=== PATIENT | female | born 1990 | race Caucasian/White ===

== ENCOUNTER 2020-11-30 05:35 | Emergency (ER) | payer SELFPAY ==
[~2020-11-30] VITALS: Ht 162.6 cm; Wt 69.8 kg
[~2020-11-30 05:35] MED LIST: HYDR-3165 PO; IBUP800T19 PO; ONDA4TAB10 SL
[2020-11-30] MEDS ORDERED: CLIN300C9 PO (06:15)
[2020-11-30] MEDS ORDERED: HYDR-2759 PO (06:15)
--- NOTE | 2020-11-30 06:15 | PHYS DOC ---
Past History Past Medical History: Asthma, Ovarian Cyst Past Surgical History: Appendectomy, Other Additional Past Surgical Histo: ovarian cyst removal Smoking: Non-smoker Alcohol Use: None Drug Use: None General Adult EDM: Chief Complaint: DENTAL PROBLEM HPI: HPI: 30-year-old female presents with left lower dental pain. The patient states that she has had bad teeth for some time. She started having swelling about 4 days ago. She has been getting spontaneous drainage of purulent fluid twice a day yesterday and today. She rates her pain a 10 out of 10. She is in the process of getting new insurance and plans to go to a dentist as soon as possible. She needs several extractions and reconstruction. Patient denies fever or chills. She has no other complaints at this time. Review of Systems: Review of Systems: Constitutional: Denies fever or chills Eyes: Denies change in visual acuity HENT: Dental pain Respiratory: Denies cough or shortness of breath Cardiovascular: Denies chest pain or edema GI: Denies abdominal pain, nausea, vomiting, bloody stools or diarrhea : Denies dysuria Musculoskeletal: Denies back pain or joint pain Integument: Denies rash Neurologic: Denies headache, focal weakness or sensory changes Endocrine: Denies polyuria or polydipsia Lymphatic: Denies swollen glands Psychiatric: Denies depression or anxiety Allergies: Allergies: Allergies Coded Allergies Type Severity Reaction Last Updated Verified venom-honey bee Allergy Intermediate 06/11/13 Yes Physical Exam: PE: Constitutional: Well developed, well nourished, no acute distress, non-toxic appearance. [] HENT: Normocephalic, atraumatic, bilateral external ears normal, oropharynx moist, no oral exudates, nose normal. Several dental caries and decomposing teeth. Inflammation of the left lower gums with spontaneous drainage from abscess. [] Eyes: PERRLA, EOMI, conjunctiva normal, no discharge. [] Neck: Normal range of motion, no tenderness, supple, no stridor. [] Cardiovascular:Heart rate regular rhythm, no murmur [] Lungs & Thorax: Bilateral breath sounds clear to auscultation [] Abdomen: Bowel sounds normal, soft, no tenderness, no masses, no pulsatile masses. [] Skin: Warm, dry, no erythema, no rash. [] Back: No tenderness, no CVA tenderness. [] Extremities: No tenderness, no cyanosis, no clubbing, ROM intact, no edema. [] Neurologic: Alert and oriented X 3, normal motor function, normal sensory function, no focal deficits noted. [] Psychologic: Affect normal, judgement normal, mood normal. [] Current Patient Data: Vital Signs: Vital Signs Date Time Temp Pulse Resp B/P (MAP) Pulse Ox O2 Delivery O2 Flow Rate FiO2 11/30/20 05:44 98.0 68 16 103/77 (86) 100 Room Air EKG: EKG: [] Radiology/Procedures: Radiology/Procedures: [] Heart Score: C/O Chest Pain: N/A Risk Factors: Risk Factors: DM, Current or recent (<one month) smoker, HTN, HLP, family histo ry of CAD, obesity. Risk Scores: Score 0 - 3: 2.5% MACE over next 6 weeks - Discharge Home Score 4 - 6: 20.3% MACE over next 6 weeks - Admit for Clinical Observation Score 7 - 10: 72.7% MACE over next 6 weeks - Early Invasive Strategies Course & Med Decision Making: Course & Med Decision Making Pertinent Labs and Imaging studies reviewed. (See chart for details) The patient has an obvious dental abscess of the left lower quadrant of the mouth. I am not certain which to is the culprit. To 11/30/1818 and 20 are badly decomposing. She is already getting spontaneous drainage so incision and drain is not necessary. I will place patient on clindamycin 3 times a day for 7 days. I have encouraged her to get into a dentist as soon as possible. She states verbal understanding. I will also discharge her with a short course of Asher 5/325. She is stable for discharge at this time. [] Dragon Disclaimer: Dragon Disclaimer: This electronic medical record was generated, in whole or in part, using a voice recognition dictation system. Departure Departure: Impression: Primary Impression: Infected dental caries Disposition: HOME / SELF CARE / HOMELESS Condition: STABLE Referrals: PCP,YESENIA (PCP) Patient Instructions: Dental Abscess Scripts Hydrocodone/Acetaminophen (Hydrocodone-Acetamin 5-325 mg) 1 Each Tablet 1 EACH PO Q4-6HRS PRN for PAIN, #10 TAB Prov: CORINA JUNG DO 11/30/20 Clindamycin Hcl (CLINDAMYCIN HCL) 300 Mg Capsule 1 CAP PO TID for dental infection, #21 CAP Prov: CORINA JUNG DO 11/30/20 CORINA JUNG DO Nov 30, 2020 06:15
[2020-11-30 06:20] VITALS: BP 105/70
== END 2020-11-30 06:22 | disposition home or self-care (01) ==
LOC: ER 05:35
DX: K02.9 Dental caries, unspecified (principal)
CPT/HCPCS: 99283-25

== ENCOUNTER 2020-12-01 18:32 | Emergency (ER) | payer SELFPAY ==
[~2020-12-01] VITALS: Ht 152.4 cm; Wt 69.8 kg
[~2020-12-01 18:32] MED LIST changes: +CLIN300C9 PO; +HYDR-2759 PO
--- NOTE | 2020-12-01 18:43 | PHYS DOC ---
Past History Past Medical History: Anxiety, Asthma, Ovarian Cyst Past Medical History Multiple dental caries enteritis Past Surgical History: Appendectomy, Other Additional Past Surgical Histo: ovarian cyst removal Smoking: Non-smoker Alcohol Use: None Drug Use: None, Marijuana General Adult HPI: HPI: ".. I had these spasms in my hands.. and could not even tie fastener anything... " Patient is a 30 year old female who presents with above hx and complaints bilateral carpal and hand spasms.. 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 Patient currently on clindamycin for multiple dental infections and codeine for pain. Patient has not scheduled appointment with the dentist as yet. Patient last seen the ED for the dental infection on 2020. Patient has past medical history of asthma, ovarian cyst, appendectomy, oophorectomy, and multiple dental caries. Patient denies any drug use with exception of some marijuana occasionally. Patient denies any travel. Patient denies any severe ill contacts. Patient has no [place] sign. Currently has no symptoms. Pt. reportedly passed out yesterday per family and hit head. They are concerned she has head injury. Review of Systems: Review of Systems: Constitutional: Denies fever or chills Eyes: Denies change in visual acuity HENT: Denies nasal congestion or sore throat Respiratory: Denies cough or shortness of breath Cardiovascular: Denies chest pain or edema GI: Denies abdominal pain, nausea, vomiting, bloody stools or diarrhea : Denies dysuria Musculoskeletal: Complains of bilateral forearm and hand spasms Integument: Denies rash Neurologic: Denies headache, focal weakness or sensory changes Endocrine: Denies polyuria or polydipsia Lymphatic: Denies swollen glands Psychiatric: Denies depression or anxiety Family History: Family History: Noncontributory to presentation Current Medications: Current Meds: See nursing for home meds Allergies: Allergies: Allergies Coded Allergies Type Severity Reaction Last Updated Verified venom-honey bee Allergy Intermediate 06/11/13 Yes Physical Exam: PE: Constitutional: History of acute distress, non-toxic appearance. [] HENT: Normocephalic, atraumatic, bilateral external ears normal, oropharynx moist, no oral exudates, nose normal. Notable dental caries where decay is secured into the gumline. Gingivitis extensively. Eyes: PERRLA, EOMI, conjunctiva normal, no discharge. [] Neck: Normal range of motion, no tenderness, supple, no stridor. [] Cardiovascular:Heart rate regular rhythm, no murmur [] Lungs & Thorax: Bilateral breath sounds equal apex with scattered wheezes on auscultation [] Abdomen: Bowel sounds normal, soft, no tenderness, no masses, no pulsatile masses. Old surgery scars. Skin: Warm, dry, no erythema, no rash. Tattoos Back: No tenderness, no CVA tenderness. [] Extremities: No tenderness, no cyanosis, no clubbing, ROM intact, no edema. [] Neurologic: Alert and oriented X 3, normal motor function, normal sensory function, no focal deficits noted. No Tinel sign. DTRs +2 patella and brachial. Assembling Inspector equal. No drift. Psychologic: Affect anxious, judgement normal, mood normal. [] EKG: EKG: [] Radiology/Procedures: Radiology/Procedures: [][address] [place] [id number] IMAGING REPORT Signed PATIENT: KAMINI ASIF ACCOUNT: [id number] : 1990 LOCATION: ER AGE: 30 SEX: F EXAM STATUS: REG ER ORD. PHYSICIAN: BRYSON BENITES MD REASON: head injury PROCEDURE: CT HEAD AND CERVICAL SPINE WO Exam: CT head and cervical spine INDICATION: Head injury TECHNIQUE: Sequential axial images through the head and cervical spine were obtained without the administration of IV contrast. Exposure: One or more of the following in the visualized dose reduction techniqu es were utilized for this examination: 1. Automated exposure control 2. Adjustment of the MA and/or KV according to patient size 3. Use of iterative of reconstructive technique Comparisons: None FINDINGS: Head: No focal parenchymal lesion or hemorrhage is identified. There is no midline shift or sulcal effacement. No acute vascular territory infarction is identified. Banks-white distinction is preserved. The ventricular system is within normal limits without compression hydrocephalus. The basal cisterns are well maintained. The visualized portions of the paranasal sinuses and mastoid air cells are well- pneumatized. No acute fractures. Cervical spine: Straightening of cervical spine which may positional. Vertebral body heights are well-maintained. No significant spondylotic change in cervical spine. Fracture to the cervical spine is identified. Visualized paraspinal soft tissues are unremarkable. IMPRESSION: 1. No acute intracranial abnormality. 2. Negative CT C-spine for acute traumatic injury. Electronically signed by: Ana Palmer MD (12/01/2020 7:58 PM) [facility] DICTATED AND SIGNED BY: ANA PALMER MD DATE: 12/01/201953 CC: BRYSON BENITES MD; PCP,NO ~MTH0 0 Heart Score: C/O Chest Pain: N/A Risk Factors: Risk Factors: DM, Current or recent (<one month) smoker, HTN, HLP, family history of CAD, obesity. Risk Scores: Score 0 - 3: 2.5% MACE over next 6 weeks - Discharge Home Score 4 - 6: 20.3% MACE over next 6 weeks - Admit for Clinical Observation Score 7 - 10: 72.7% MACE over next 6 weeks - Early Invasive Strategies Course & Med Decision Making: Course & Med Decision Making Pertinent Labs and Imaging studies reviewed. (See chart for details) Pt. to push frut juices. Continue current clindamycin for dental infections. Must follow up with primary and dentist. Impression: 1. Carpal and Forearm Muscle spasms 2. Dental Caries and infections 3. Hypokalemia 2.9 [] Dragon Disclaimer: Dragon Disclaimer: This electronic medical record was generated, in whole or in part, using a voice recognition dictation system. Departure Departure: Referrals: PCP,NO (PCP) [place] Disclaimer This chart was dictated in whole or in part using Voice Recognition software in a busy, high-work load, and often noisy Emergency Department environment. It may contain unintended and wholly unrecognized errors or omissions. RBYSON BENITES MD Dec 01, 2020 18:43
[2020-12-01 19:28] LABS: BASO % 1 % (0-3); EOS # 0.1 x10^3/uL (0.0-0.7); EOS % 2 % (0-3); HEMATOCRIT 38.4 % (36.0-47.0); HEMOGLOBIN 13.7 g/dL (12.0-15.5); LYMPH % 37 % (24-48); MEAN CORPUSCULAR HEMOGLOBIN 33 pg (25-35); MEAN CORPUSCULAR HGB CONC 36 g/dL (31-37); MEAN CORPUSCULAR VOLUME 92 fL (79-100); MONO # 0.4 x10^3/uL (0.0-1.1); MONO % 7 % (0-9); NEUT % 54 % (31-73); PLATELET COUNT 228 x10^3/uL (140-400); RED BLOOD COUNT 4.17 x10^6/uL (3.50-5.40); WHITE BLOOD COUNT 5.5 x10^3/uL (4.0-11.0)
[2020-12-01] MEDS ORDERED: MVI, ADULT NO.4 WITH VIT K 10 ML, FOLIC ACID INJ 1 MG, THIAMINE INJ 100 MG in IV RINGER... IV ONE (19:30)
[2020-12-01 19:34] LABS: CALCIUM 9.4 mg/dL (8.5-10.1); CREATININE 0.8 mg/dL (0.6-1.0); GFR 84.2
[2020-12-01 19:36] LABS: POTASSIUM 2.9 mmol/L (3.5-5.1)
[2020-12-01] MEDS ORDERED: MAGNESIUM HYDROXIDE 2,400 MG/30 ML ORAL.SUSP. PO ONE (19:45)
[2020-12-01] MEDS ORDERED: POTASSIUM CHLORIDE 20 MEQ TABLET.ER. PO ONE (19:45)
[2020-12-01] MEDS ORDERED: IV RINGERS SOLUTION,LACTATED 1,000 ML IV ONE (20:00)
--- NOTE | 2020-12-01 20:01 | RAD ---
Exam: CT head and cervical spine INDICATION: Head injury TECHNIQUE: Sequential axial images through the head and cervical spine were obtained without the admi nistration of IV contrast. Exposure: One or more of the following in the visualized dose reduction techniques were utilized for this examination: 1. Automated exposure control 2. Adjustment of the MA and/or KV according to patient size 3. Use of iterative of reconstructive technique Comparisons: None FINDINGS: Head: No focal parenchymal lesion or hemorrhage is identified. There is no midline shift or sulcal effaceme nt. No acute vascular territory infarction is identified. Banks-white distinction is preserved. The ventricular system is within normal limits without compression hydrocephalus. The basal cisterns are well maintained. The visualized portions of the paranasal sinuses and mastoid air cells are well-pneumatized. No acute fractures. Cervical spine: Straightening of cervical spine which may positional. Vertebral body heights are well-maintained. No significant spondylotic change in cervical spine. Fracture to the cervical spine is identified. Visualized paraspinal soft tissues are unremarkable. IMPRESSION: 1. No acute intracranial abnormality. 2. Negative CT C-spine for acute traumatic injury. Electronically signed by: Ana Matthew MD (12/01/2020 7:58 PM) [facility]
[2020-12-01 20:16] LABS: BARBITURATES NEG (NEG); BENZODIAZEPINES NEG (NEG); CANNABINOIDS POS (NEG); COCAINE NEG (NEG); METHADONE NEG (NEG); OPIATES POS (NEG); PHENCYCLIDINE NEG (NEG)
[2020-12-01 20:17] LABS: AMPHETAMINE/METHAMPHETAMINE NEG (NEG)
[2020-12-01 20:25] LABS: BACTERIA,URINE 0 /HPF (0-FEW); BILIRUBIN,URINE SMALL (NEG); CLARITY,URINE HAZY; COLOR,URINE YELLOW; GLUCOSE,URINE NEG (NEG); NITRITE,URINE NEG (NEG); RBC,URINE OCC /HPF (0-2)
[2020-12-01 20:26] LABS: SQUAMOUS EPITHELIAL CELL,UR MANY /LPF
[2020-12-01 21:39] VITALS: BP 108/70
== END 2020-12-01 21:39 | disposition home or self-care (01) ==
LOC: ER 18:32
DX: M62.838 Other muscle spasm (principal); K02.9 Dental caries, unspecified; E87.6 Hypokalemia; J45.909 Unspecified asthma, uncomplicated
CPT/HCPCS: 36415; 70450; 72125; 80048; 80307; 81001; 81025; 83735; 85025; 96365; 96366; 99285; J7120

== ENCOUNTER 2021-05-12 06:36 | Emergency (ER) | payer SELFPAY ==
[~2021-05-12] VITALS: Ht 152.4 cm; Wt 69.8 kg
[~2021-05-12 06:36] MED LIST changes: +CLIN-95 PO; -CLIN300C9 PO
[2021-05-12 06:38] VITALS: BP 132/71
[2021-05-12] MEDS ORDERED: PRED50TA PO (07:23)
[2021-05-12] MEDS ORDERED: ALBU2.5V8 IH (07:23)
--- NOTE | 2021-05-12 07:23 | PHYS DOC ---
Past History Past Medical History: Anxiety, Asthma, Ovarian Cyst Past Surgical History: Appendectomy, Other Additional Past Surgical Histo: ovarian cyst removal Smoking: Non-smoker Alcohol Use: None Drug Use: None, Marijuana General Adult EDM: Chief Complaint: ASTHMA HPI: HPI: Patient is a 30-year-old female presenting with asthma exacerbation that started overnight. Patient states that she was sleeping with a fan on when she woke up last night with shortness of breath and nonproductive cough. Patient states the cold is off one of her asthma triggers. Is out of her inhaler. Patient states that she currently does not have insurance she has not been on the follow-up with primary care. Has had her Covid vaccines. No other complaints. Review of Systems: Review of Systems: All other systems within normal limits except for as noted in the HPI Allergies: Allergies: Allergies Coded Allergies Type Severity Reaction Last Updated Verified venom-honey bee Allergy Intermediate 06/11/13 Yes Physical Exam: PE: Constitutional: Well developed, well nourished, no acute distress, non-toxic appearance. [] HENT: Normocephalic, atraumatic, bilateral external ears normal, nose normal. [] Eyes: PERRLA, conjunctiva normal, no discharge. [] Neck: No rigidity, supple, no stridor. [] Cardiovascular: Regular rate and rhythm, brisk cap refill [] Lungs & Thorax: Non labored symmetric respirations, no tachypnea or respiratory distress. Bilateral end expiratory wheezes [] Abdomen: Soft, nondistended. Skin: Warm, dry, no erythema, no rash. [] Back: Unremarkable Extremities: No deformities, range of motion grossly intact, no lower extremity edema [] Neurologic: Alert and oriented X 3, no focal deficits noted. [] Psychologic: Affect normal, judgement normal, mood normal. [] Current Patient Data: Vital Signs: Vital Signs Date Time Temp Pulse Resp B/P (MAP) Pulse Ox O2 Delivery O2 Flow Rate FiO2 05/12/21 06:38 78 132/71 (91) 97 05/12/21 06:38 20 Room Air EKG: EKG: [] Radiology/Procedures: Radiology/Procedures: [] Heart Score: C/O Chest Pain: No Risk Factors: Risk Factors: DM, Current or recent (<one month) smoker, HTN, HLP, family history of CAD, obesity. Risk Scores: Score 0 - 3: 2.5% MACE over next 6 weeks - Discharge Home Score 4 - 6: 20.3% MACE over next 6 weeks - Admit for Clinical Observation Score 7 - 10: 72.7% MACE over next 6 weeks - Early Invasive Strategies Course & Med Decision Making: Course & Med Decision Making Pertinent Labs and Imaging studies reviewed. (See chart for details) [] Dragon Disclaimer: Dragon Disclaimer: This electronic medical record was generated, in whole or in part, using a voice recognition dictation system. Departure Departure: Impression: Primary Impression: Asthma exacerbation Disposition: HOME / SELF CARE / HOMELESS Condition: STABLE Referrals: PCP,YESENIA (PCP) Patient Instructions: Asthma Attacks, Prevention Additional Instructions: [facility] for primary care follow-up Address: [address] [address] Scripts Albuterol Sulfate (PROAIR HFA INHALER) 8.5 Gm Hfa.aer.ad 2 PUFF IH PRN Q4-6HRS PRN for wheezing for 21 Days, #1 INHALER 1 Refill Prov: BON GALVAN MD 05/12/21 Prednisone (PREDNISONE) 50 Mg Tablet 1 TAB PO DAILY for steroid for 4 Days, #4 TAB You received this medication in the emergency room today. You will starting your next dose tomorrow. Prov: BON GALVAN MD 05/12/21 BON GALVAN MD May 12, 2021 07:23
[2021-05-12] MEDS ORDERED: predniSONE 20 MG TABLET ONE (07:29)
[2021-05-12] MEDS ORDERED: ALBUTEROL SULFATE 8GM INHALER. ONE (07:29)
[2021-05-12] MEDS ORDERED: predniSONE 20 MG TABLET PO ONE (07:30)
[2021-05-12] MEDS ORDERED: ALBUTEROL SULFATE 8GM INHALER. INH ONE (07:30)
== END 2021-05-12 07:33 | disposition home or self-care (01) ==
LOC: ER 06:36
DX: J45.901 Unspecified asthma with (acute) exacerbation (principal); F41.9 Anxiety disorder, unspecified; Z91.030 Bee allergy status
CPT/HCPCS: 94640; 99283; J7512; 94664

== ENCOUNTER 2021-07-06 12:02 | Emergency (ER) | payer SELFPAY ==
[~2021-07-06] VITALS: Ht 152.4 cm; Wt 72.0 kg
[~2021-07-06 12:02] MED LIST changes: +ALBU2.5V8 IH; +PRED50TA PO
[2021-07-06] MEDS ORDERED: ALBUTEROL SULFATE 8GM INHALER. INH ONE (12:45)
[2021-07-06] MEDS ORDERED: predniSONE 20 MG TABLET PO ONE (12:45)
--- NOTE | 2021-07-06 13:00 | RAD ---
XR CHEST 2V History: Chest and shoulder pain, cough. Comparison: None. Technique: PA and lateral chest radiographs. Findings: The lungs are adequately and symmectrically inflated. No airspace consolidation, pleural effusion or pneumothorax. The cardiomediastinal silhoutte and pulmonary vasculature are within normal limits. Sof t tissues and osseous structures are unremarkable. Impression: 1. No acute cardiopulmonary process. Electronically signed by: Hany Rendon MD (07/06/2021 12:57 PM) [id number]
--- NOTE | 2021-07-06 13:00 | RAD ---
Exam: XR SHOULDER_RIGHT 2+ VIEWS History: Cough, chest and shoulder pain. Comparison: Chest x-ray 07/06/2021 Findings: Osseous mineralization is normal. No acute fracture or dislocaton. No significant degenerative change s. Soft tissues are unremarkable. Impression: 1. Unremarkable right shoulder. Electronically signed by: Hany Rendon MD (07/06/2021 12:57 PM) [id number]
--- NOTE | 2021-07-06 13:12 | PHYS DOC ---
Past History Past Medical History: Anxiety, Asthma, Ovarian Cyst (MIRIAM GURROLA APRN) Past Surgical History: Appendectomy, Other Additional Past Surgical Histo: ovarian cyst removal (MIRIAM GURROLA APRN) Smoking: Non-smoker Alcohol Use: None Drug Use: None, Marijuana (MIRIAM GURROLA APRN) General Adult EDM: Chief Complaint: ASTHMA HPI: HPI: Patient is a 30-year-old female who presents with cough. Patient states "I coughed so hard that it hurt my right shoulder". Patient has history of asthma and is out of her inhaler at home. Afebrile. Patient reports being fully vaccinated for COVID-19. Asthma is patient's only health history. (MIRIAM GURROLA APRN) Review of Systems: Review of Systems: ROS At least 10 ROS systems have been reviewed and are negative except as documented in the HPI. General: Negative except as outlined in HPI above. Skin: Negative except as outlined in HPI above. HEENT: Negative except as outlined in HPI above. Neck: Negative except as outlined in HPI above. Respiratory: Negative except as outlined in HPI above.. Cardiovascular: Negative except as outlined in HPI above. Abdomen: Negative except as outlined in HPI above. : Negative except as outlined in HPI above. Back/MSK: Negative except as outlined in HPI above. Neuro: Negative except as outlined in HPI above. Psych: Negative except as outlined in HPI above. (MIRIAM GURROLA APRN) Current Medications: Current Meds: Current Medications Medications (Trade) Dose Ordered Sig/Jose Angel Start Time Stop Time Status Last Admin Dose Admin Albuterol Sulfate (Ventolin Hfa Inhaler) 1 puff 1X ONCE 07/06/21 12:45 07/06/21 12:49 DC 07/06/21 12:56 1 PUFF Prednisone (Prednisone) 60 mg 1X ONCE 07/06/21 12:45 07/06/21 12:49 DC 07/06/21 12:45 60 MG (MIRIAM GURROLA APRN) Allergies: Allergies: Allergies Coded Allergies Type Severity Reaction Last Updated Verified venom-honey bee Allergy Intermediate 07/06/21 Yes (MIRIAM GURROLA APRN) Physical Exam: PE: Constitutional: Well developed, well nourished, no acute distress, non-toxic appearance. [] HENT: Normocephalic, atraumatic, bilateral external ears normal, oropharynx moist, no oral exudates, nose normal. [] Eyes: PERRLA, EOMI, conjunctiva normal, no discharge. [] Neck: Normal range of motion, no tenderness, supple, no stridor. [] Cardiovascular:Heart rate regular rhythm, no murmur [] Lungs & Thorax: Bilateral breath sounds clear to auscultation [] Abdomen: Bowel sounds normal, soft, no tenderness, no masses, no pulsatile masses. [] Skin: Warm, dry, no erythema, no rash. [] Back: No tenderness, no CVA tenderness. [] Extremities: Right shoulder tenderness, no cyanosis, no clubbing, ROM intact, no edema. [] Neurologic: Alert and oriented X 3, normal motor function, normal sensory function, no focal deficits noted. [] Psychologic: Affect normal, judgement normal, mood normal. [] (MIRIAM GURROLA APRN) Current Patient Data: Vital Signs: Vital Signs Date Time Temp Pulse Resp B/P (MAP) Pulse Ox O2 Delivery O2 Flow Rate FiO2 07/06/21 12:39 98.3 99 18 106/59 (75) 98 Room Air (MIRIAM GURROLA APRN) EKG: EKG: [] (MIRIAM GURROLA APRN) Radiology/Procedures: Radiology/Procedures: []Exam: XR SHOULDER_RIGHT 2+ VIEWS History: Cough, chest and shoulder pain. Comparison: Chest x-ray 07/06/2021 Findings: Osseous mineralization is normal. No acute fracture or dislocaton. No significant degenerative changes. Soft tissues are unremarkable. Impression: 1. Unremarkable right shoulder. Electronically signed by: Hany Rendon MD (07/06/2021 12:57 PM) [id number] XR CHEST 2V History: Chest and shoulder pain, cough. Comparison: None. Technique: PA and lateral chest radiographs. Findings: The lungs are adequately and symmectrically inflated. No airspace consolidation, pleural effusion or pneumothorax. The cardiomediastinal silhoutte and pulmonary vasculature are within normal limits. Soft tissues and osseous structures are unremarkable. Impression: 1. No acute cardiopulmonary process. Electronically signed by: Hany Rendon MD (07/06/2021 12:57 PM) [id number] (MIRIAM GURROLA APRN) Heart Score: C/O Chest Pain: No Risk Factors: Risk Factors: DM, Current or recent (<one month) smoker, HTN, HLP, family history of CAD, obesity. Risk Scores: Score 0 - 3: 2.5% MACE over next 6 weeks - Discharge Home Score 4 - 6: 20.3% MACE over next 6 weeks - Admit for Clinical Observation Score 7 - 10: 72.7% MACE over next 6 weeks - Early Invasive Strategies (MIRIAM GURROLA APRN) Course & Med Decision Making: Course & Med Decision Making Pertinent Labs and Imaging studies reviewed. (See chart for details) [] 30-year-old female presents with cough. Patient was complaining of right shoulder pain due to coughing so hard. ER work-up consisted of right shoulder x-ray, chest x-ray. Patient does have a history of asthma and reports being out of her inhalers at home. Chest x-ray and shoulder x-ray were both unremarkable. Patient given prednisone and albuterol inhaler while in the ER. Patient's COVID and influenza test were both negative. Patient most likely is experiencing asthma exacerbation. (MIRIAM GURROLA APRN) Dragon Disclaimer: Dragon Disclaimer: This electronic medical record was generated, in whole or in part, using a voice recognition dictation system. (MIRIAM GURROLA APRN) Departure Departure: Impression: Primary Impression: Asthma exacerbation Qualified Codes: J45.21 - Mild intermittent asthma with (acute) exacerbation Disposition: 01 HOME / SELF CARE / HOMELESS Condition: STABLE Referrals: PCP,NO (PCP) Patient Instructions: Asthma, Adult, [id number] Additional Instructions: You were seen in the emergency room for cough and asthma exacerbation. You were out of your inhalers at home so we sent you home with an albuterol inhaler. You were given 1 dose of prednisone while in the ER. I am sending you home with prednisone as well. Chest x-ray was unremarkable. Your COVID and influenza test were both negative. Please return to the emergency room if you have worsening symptoms or concerns. EMERGENCY DEPARTMENT GENERAL DISCHARGE INSTRUCTIONS Thank you for coming to [facility] (ED) today and trusting us with you care. We trust that you had a positivie experience in our Emergency Department. If you wish to speak to the department management, you may call the director at . YOUR FOLLOW UP INSTRUCTIONS ARE FOLLOWS: 1. Do you have a private Doctor? If you do not have a private doctor, please ask for a resource list of physicians or clinics that may be able to assist you with follow up care. 2. The Emergency Physician has interpreted your x-rays. The X-Ray specialist will also review them. If there is a change in the findings, you will be notified in 48 hours when at all possible. 3. A lab test or culture has been done, your results will be reviewed and you will be notified if you need a change in treatment. ADDITIONAL INSTRUCTIONS AND INFORMATION: 1. Your care today has been supervised by a physician who is specially trained in emergency care. Many problems require more than one evaluation for a complete diagnosis and treatment. We recommend that you schedule your follow up appointment as recommended to ensure complete treatment of you illness or injury. If you are unable to obtain follow up care and continue to have a problem, or if your condition worsens, we recommend that you return to the ED. 2. We are not able to safely determine your condition over the phone nor are we able to give sound medical advice over the phone. For these safety reasons, if you call for medical advice we will ask you to come to the ED for further evaluation. 3. If you have any questions regarding these discharge instructions please call the ED at [phone]. SAFETY INFORMATION: In the interest of safety, wellness, and injury prevention; we encourage you to wear your sealbelt, if you smoke; quite smoking, and we encourage family to use a protective helmet for bicycling and other sporting events that present an increased risk for head injury. IF YOUR SYMPTOMS WORSEN OR NEW SYMPTOMS DEVELOP, OR YOU HAVE CONCERNS ABOUT YOUR CONDITION; OR IF YOUR CONDITION WORSENS WHILE YOU ARE WAITING FOR YOUR FOLLOW UP APPOINTMENT; EITHER CONTACT YOUR PRIMARY CARE DOCTOR, THE PHYSICIAN WHOSE NAME AND NUMBER YOU WERE GIVEN, OR RETURN TO THE ED IMMEDIATELY. Scripts Prednisone (PREDNISONE) 20 Mg Tablet 3 TAB PO DAILY for allergies for 5 Days, #15 TAB Prov: MIRIAM GURROLA APRN 07/06/21 Attending Signature Attending Signature I have reviewed the PA/[employer]GER's note and plan of care. I was available for consultation as needed during the patient's visit in the emergency department. I agree with the clinical impression, plan, and disposition. (KAR PEÑA DO) MIRIAM GURROLA APRN Jul 06, 2021 13:12 KAR PEÑA DO Jul 07, 2021 02:54
[2021-07-06 13:25] LABS: INFLUENZA A PATIENT NEGATIVE (NEGATIVE); INFLUENZA B PATIENT NEGATIVE (NEGATIVE)
[2021-07-06 13:30] VITALS: BP 136/78
[2021-07-06] MEDS ORDERED: PRED20TA PO (13:43)
== END 2021-07-06 13:50 | disposition home or self-care (01) ==
LOC: ER 12:02
DX: J45.901 Unspecified asthma with (acute) exacerbation (principal); M25.511 Pain in right shoulder; Z20.822 Contact with and (suspected) exposure to COVID-19
CPT/HCPCS: 71046; 73030; 87428; 94640; 99284; J7512; 94664